=== PATIENT | female | born 1935 | race Caucasian/White ===

== ENCOUNTER → 2024-02-02 | Outpatient (CLI) | payer MEDICARE, BC ==
[2024-02-02 10:11] LABS: African American GFR (CKD) 42 (>60 ml/min/1.73 sqM); Blood Urea Nitrogen 36 mg/dL (7-17); Non-African American GFR(CKD) 36 (>60 ml/min/1.73 sqM)
--- NOTE | 2024-02-02 12:52 | FL ---
EXAMINATION TYPE: FL barium swallow DATE OF EXAM: 02/02/2024 CLINICAL INDICATION: 80 year-old female palpable lump left side of the neck. 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 FINDINGS: There is deep penetration noted with trace aspiration. No cough reflex is elicited. Hypopharyngeal an atomy otherwise maintained. There is tortuous course of the mid thoracic esophagus. No fixed narrowing. Moderate dysmotility is p resent with extensive tertiary peristaltic waves in stagnating contrast throughout the esophagus when the patient is prone/supine. Sandy assists with clearing. The mucosal is normal and no persistent filling defect is encountered. There is a small hiatal hernia present with mild gastroesophageal reflux. IMPRESSION: 1. Deep penetration with trace, silent aspiration noted. If symptomatic, consider speech pathology ev aluation. 2. Moderate esophageal dysmotility with stagnating contrast throughout the esophagus when the patient is prone/supine. 3. No stricture or suspicious mucosal lesion. 4. Small hiatal hernia with mild GERD.
--- NOTE | 2024-02-02 13:20 | CT ---
EXAMINATION TYPE: CT soft tissue neck wo con DATE OF EXAM: 02/02/2024 HISTORY: symptoms and signs involving circulatory/resp system, lump on left side marked w bb COMPARISON: None CT DLP: 434.8 mGycm. Automated Exposure Control for Dose Reduction was Utilized. TECHNIQUE multiple axial images were obtained from the skull base to the thoracic inlet without contr ast..: FINDINGS: There are no supraclavicular lymph nodes. There is no mass or abnormality beneath the BB marker in th e lower left neck. There is no thyroid mass or gross enlargement. The larynx including the cricoid, arytenoid and thyroid cartilages as well as the vocal cords are nor mal and symmetric. The tongue base, epiglottis, aryepiglottic folds, piriform sinuses and vallecula are normal and symme tric. The parotid and submandibular glands are normal and symmetric without focal mass or gross enlargement . There is no pharyngeal or parapharyngeal soft tissue mass or enhancement There is moderate eccentric calcification of the carotid bifurcations bilaterally. There are few scattered nonenlarged jugular lymph nodes and submental lymph nodes but there is no lym phadenopathy. There is no soft tissue swelling, inflammation or abscess. Mild chronic inflammatory changes in the right maxillary sinus. IMPRESSION: 1. No lymphadenopathy within the neck. 2. Moderate calcified plaque of the carotid bifurcations. 3. No abnormality in the region of clinical concern as directed by the patient
== END | disposition home or self-care (01) ==
LOC: RADCTMAIN 09:01
PROVIDERS: ATTEND Otolaryngology
DX: K44.9 Diaphragmatic hernia without obstruction or gangrene (principal); I65.23 Occlusion and stenosis of bilateral carotid arteries; K21.9 Gastro-esophageal reflux disease without esophagitis; Z13.9 Encounter for screening, unspecified; K22.4 Dyskinesia of esophagus; R09.89 Other specified symptoms and signs involving the circulatory and respiratory systems; Z87.19 Personal history of other diseases of the digestive system
CPT/HCPCS: 36415; 70490; 74220; 82565; 84520

== ENCOUNTER 2025-02-05 14:41 | Inpatient (IN) | payer BC, MEDICARE ==
[2025-02-05 14:55] LABS: Glucose,Whole Blood 102 mg/dL (70-110)
--- NOTE | 2025-02-05 15:34 | ED ---
General Adult HPI - General Chief complaint: Neuro Symptoms/Deficit Stated complaint: weakness Time Seen by Provider: 02/05/25 14:45 Source: patient, EMS, RN notes reviewed, old records reviewed Mode of arrival: EMS - History of Present Illness Initial comments: Is an 89-year-old female who presents to the emergency department after having been at [place] because she showed up after she had gone unresponsive at home and according to some of the documentation the patient had some facial droop and an NIH of 8 on other documentation however when they sent the patient she was an NIH is 0. Patient herself is now alert and oriented x 4 she has no complaints. Sodium according to the lab work that was sent was 128. - Related Data Allergies Allergy/AdvReac Type Severity Reaction Status Date / Time Sulfa (Sulfonamide Allergy Unknown Verified 02/05/25 14:51 Antibiotics) Review of Systems ROS Statement: Those systems with pertinent positive or pertinent negative responses have been documented in the HPI. ROS Other: All systems not noted in ROS Statement are negative. Past Medical History Past Medical History: Cancer, Myocardial Infarction (HI) Additional Past Medical History / Comment(s): pace maker, 3 stents placed. unknown cancer History of Any Multi-Drug Resistant Organisms: None Reported Past Surgical History: Appendectomy, Cholecystectomy, Hysterectomy, Joint Replacement, Pacemaker, Tonsillectomy Additional Past Surgical History / Comment(s): Knee replacement x2, hip replacement Past Psychological History: No Psychological Hx Reported Smoking Status: Never smoker Past Alcohol Use History: None Reported Past Drug Use History: None Reported General Exam - General Exam Comments Initial Comments: GENERAL: Patient is well-developed and well-nourished. Patient is nontoxic and well- hydrated and is in mild distress. ENT: Neck is soft and supple. No significant lymphadenopathy is noted. Oropharynx is clear. Moist mucous membranes. Neck has full range of motion without eliciting any pain. EYES: The sclera were anicteric and conjunctiva were pink and moist. Extraocular movements were intact and pupils were equal round and reactive to light. Eyelids were unremarkable. PULMONARY: Unlabored respirations. Good breath sounds bilaterally. No audible rales rhonchi or wheezing was noted. CARDIOVASCULAR: There is a regular rate and rhythm without any murmurs gallops or rubs. ABDOMEN: Soft and nontender with normal bowel sounds. SKIN: Skin is clear with no lesions or rashes and otherwise unremarkable. NEUROLOGIC: Patient is alert and oriented x3. Cranial nerves II through XII are grossly intact. Motor and sensory are also intact. Normal speech, volume and content. Symmetrical smile. Patient has an NIH is 0 MUSCULOSKELETAL: Normal extremities with adequate strength and full range of motion. LYMPHATICS: No significant lymphadenopathy is noted PSYCHIATRIC: Normal psychiatric evaluation. Course Vital Signs 02/05/25 14:44 Temperature 98.3 F Pulse Rate 75 Respiratory 16 Rate Blood Pressure 129/67 O2 Sat by Pulse 95 Oximetry Medical Decision Making - Medical Decision Making Was pt. sent in by a medical professional or institution (, TERRENCE, RENTAL COUNTER CLERK, urgent care, hospital, or skilled nursing...) When possible be specific @ -No Did you speak to anyone other than the patient for history (EMS, parent, family, police, friend...)? What history was obtained from this source @ -No Did you review nursing and triage notes (agree or disagree)? Why? @ -I reviewed and agree with nursing and triage notes Were old charts reviewed (outside hosp., previous admission, EMS record, old EKG, old radiological studies, urgent care reports/EKG's, skilled nursing records)? Report findings @ -I reviewed all the lab work CT results and HPI from [facility]. Differential Diagnosis? @ -Differential Altered Mental Status: Hypoglycemia, DKA, hypercapnia, ETOH, overdose, CO poisoning, trauma, myxedema coma, HTN encephalopathy, infection, encephalitis, psychosis, intercranial hemorrhage, hepatic encephalopathy, meningitis, CVA, this is not meant to be an all-inclusive list EKG interpreted by me (3pts min.). @ -As above X-rays interpreted by me (1pt min.). @ -None done CT interpreted by me (1pt min.). @ -None done U/S interpreted by me (1pt. min.). @ -None done What testing was considered but not performed or refused? (CT, X-rays, U/S, labs)? Why? @ -None What meds were considered but not given or refused? Why? @ -None Did you discuss the management of the patient with other professionals (professionals i.e. TERRENCE Woody, RENTAL COUNTER CLERK, lab, RT, psych nurse, vp digital marketing social media and crm, housekeeping and laundry team leader, teacher, gunnery/ordnance officer, vocational case manager)? Give summary @ -Spoke with Dr. Solis he agreed to admit the patient admit the patient wrote admitting orders Was smoking cessation discussed for >3mins.? @ -No Was critical care preformed (if so, how long)? @ -No Were there social determinants of health that impacted care today? How? (Homelessness, low income, unemployed, alcoholism, drug addiction, transportation, low edu. Level, literacy, decrease access to med. care, skilled nursing, rehab)? @ -No Was there de-escalation of care discussed even if they declined (Discuss DNR or withdrawal of care, Hospice)? DNR status @ -No What co-morbidities impacted this encounter? (DM, HTN, Smoking, COPD, CAD, Cancer, CVA, ARF, Chemo, Hep., AIDS, mental health diagnosis, sleep apnea, morbid obesity)? @ -None Was patient admitted / discharged? Hospital course, mention meds given and route, prescriptions, significant lab abnormalities, going to OR and other pertinent info. @ -Patient's lab work indicated that the patient had sodium 128 he will be admitted to Dr. Griffith and patient will be given some fluids. He can still be placed for neurology Undiagnosed new problem with uncertain prognosis? @ -No Drug Therapy requiring intensive monitoring for toxicity (Heparin, Nitro, Insulin, Cardizem)? @ -No Were any procedures done? @ -No Diagnosis/symptom? @ -Altered mental status Acute, or Chronic, or Acute on Chronic? @ -Acute Uncomplicated (without systemic symptoms) or Complicated (systemic symptoms)? @ -Complicated Side effects of treatment? @ -No Exacerbation, Progression, or Severe Exacerbation? @ -No Poses a threat to life or bodily function? How? (Chest pain, USA, HI, pneumonia, PE, COPD, DKA, ARF, appy, cholecystitis, CVA, Diverticulitis, Homicidal, Suicidal, threat to staff... and all critical care pts) @ -No Diagnosis/symptom? @ -Hyponatremia Acute, or Chronic, or Acute on Chronic? @ -Acute Uncomplicated (without systemic symptoms) or Complicated (systemic symptoms)? @ -Uncomplicated Side effects of treatment? @ -None Exacerbation, Progression, or Severe Exacerbation] @ -No Poses a threat to life or bodily function? @ -No - Lab Data Lab Results 02/05/25 Range/Units 14:52 POC Glucose (mg/dL) 102 (70-110) mg/dL POC Glu Net Washer ID Whitney Tim Disposition Clinical Impression: Altered mental status, Hyponatremia Disposition: ADMITTED IP TO THIS HOSP Referrals: Sandee Bardales MD [Primary Care Provider] - 1-2 days Time of Disposition: 15:36
[2025-02-05] MEDS: SODIUM CHLORIDE 0.9% 1,000 ML IV ONE (15:59)
[2025-02-05] MEDS ORDERED: ACETAMINOPHEN TAB 500 MG TAB PO PRN (15:59)
--- NOTE | 2025-02-05 16:40 | US ---
EXAMINATION TYPE: US carotid duplex BILAT DATE OF EXAM: 02/05/2025 COMPARISON: NONE CLINICAL INDICATION: Female, 89 years old with history of stroke; stroke Additional History: .... TECHNIQUE: Grayscale, color Doppler and spectral Doppler evaluation of the bilateral carotid systems and vertebral arteries. Indirect Doppler criteria was utilized. FINDINGS: EXAM MEASUREMENTS: RIGHT: Peak Systolic Velocity (PSV) cm/sec ----- Right CCA: 64.2 ----- Right ICA: 98.7 ----- Right ECA: 63.2 ICA/CCA ratio: 1.54 RIGHT: End Diastole cm/sec ----- Right CCA: 0.0 ----- Right ICA: 6.7 ----- Right ECA: 0.0 LEFT: Peak Systolic Velocity (PSV) cm/sec ----- Left CCA: 62.2 ----- Left ICA: 98.7 ----- Left ECA: 64.2 ICA/CCA ratio: 1.59 LEFT: End Diastole cm/sec ----- Left CCA: 1.5 ----- Left ICA: 9.7 ----- Left ECA: 0.0 VERTEBRALS (direction of flow): Right Vertebral: Antegrade Left Vertebral: Antegrade Rhythm: Normal BAND MANAGER NOTES: Moderate plaque right bifurcation. Mild plaque left bifurcation. No evidence of in creased velocities Color Doppler imaging shows patency with blood flow throughout the carotid artery. Spectral waveforms are within normal limits. IMPRESSION: Moderate atherosclerotic plaque within the right carotid bifurcation with mild amount within the left carotid bifurcation. Right: Less than 50% stenosis of the carotid bifurcation. Left: Less than 50% stenosis of the carotid bifurcation. Criteria for Assigning % of Stenosis / Diameter reduction (Estimation based on the indirect measurements of the internal carotid artery velocities (ICA PSV). 1. Normal (no stenosis)=ICA PSV < 180 cm/s: ratio < 2.0: ICA EDV<40 cm/s. 2. Less than 50% stenosis=ICA PSV < 180 cm/s: ratio < 2.0: ICA EDV<40 cm/s. 3. 50 to 69% stenosis=ICA PSV of 180 to 230 cm/s: ration 2.0 ? 4.0: ICA EDV 40-100 cm/s. PSV 125-180 cm/sec and ICA/CCA PSV Ratio ? 2.0 is also consistent with 50-69% stenosis 4. Greater than 70% stenosis to near occlusion= ICA PSV > 230 cm/s: ratio > 4.0: ICA EDV > 100 cm/s. 5. Near occlusion= ICA PSV velocities may be low or undetectable: variable ratio and ICA EDV. 6. Total occlusion=unable to detect flow. [facility], , 02/05/2025 4:38 PM
[2025-02-05] MEDS: ASPIRIN 81 MG PO SCH (17:31)
[2025-02-05] MEDS: PANTOPRAZOLE 40 MG TABLET PO SCH (17:32)
[2025-02-06] MEDS: HEPARIN SODIUM,PORCINE 5,000 UNIT/ML 1 ML VIAL SQ SCH ×2 (00:10→07:00)
--- NOTE | 2025-02-06 02:42 | HP ---
HISTORY AND PHYSICAL CHIEF COMPLAINT: Weakness and syncope. HISTORY OF PRESENT ILLNESS: This 89-year-old woman with past medical history of multiple medical history including myocardial infarction, apparently was sitting at the breakfast table with the . The patient passed out and was taken to the [facility] and the patient was noted to have some facial droop, NIH of 8. The patient was subsequently to 0 and the patient was oriented x4. Now, the patient is being sent to [facility] for further evaluation and treatment. There is no history of fever, rigors, chills at this time. PAST MEDICAL HISTORY: History of myocardial infarction. Rest of history and rest of the chart also reviewed. HOME MEDICATION: List is not available. ALLERGIES: Sulfa. FAMILY HISTORY: No history of heart disease or strokes in the family. SOCIAL HISTORY: No history of smoking or alcohol. REVIEW OF SYSTEMS: Fourteen-point review of systems negative except as mentioned earlier. PHYSICAL EXAMINATION: VITAL SIGNS: Pulse is 75, blood pressure 199/67, respirations 16. HEENT: Conjunctivae normal. NECK: No jugular venous distention. CARDIOVASCULAR: S1, S2 muffled. RESPIRATIONS: Breath sounds diminished at the bases. ABDOMEN: Soft, nontender. EXTREMITIES: Legs, n NERVOUS SYSTEM: Diffusely weak. LABORATORY DATA: Awaited. ASSESSMENT: 1. Syncope, rule out cardiac syncope. 2. Possible transient ischemic attack, rule out stroke. 3. History of myocardial infarction. 4. History of AICD. 5. History of coronary artery disease stent. 6. History of cancer. 7. History of cholecystectomy. 8. History of degenerative joint disease. RECOMMENDATION: This 89-year-old woman, who presented with multiple complex medical history, we will monitor the patient closely. I would recommend Cardiology, Neurology consultation. Full neurovascular workup including 2D echo, carotid ultrasound. I would also recommend orthostatic vitals also. See orders for details. Guarded prognosis. Further recommendations to follow. MMODL / IJN: [id number] / NAYELI
--- NOTE | 2025-02-06 07:56 | CA ---
Transthoracic Echo Report Name: Loni Reyes Age: 89 Gender: F : 1935 Exam Date: 02/05/2025 16:46 Exam Location: [place] [facility] Ht (in): 60 Wt (lb): 178 Ordering Physician: Gilberto Griffith MD Attending/Referring Phys: [place] Reverse Winder Azalia Washburn RDCS Procedure CPT: Indications: stroke Cardiac Hx: Pacemaker Technical Quality: Fair Contrast 1: Agitated Saline Total Dose (mL): 9 Contrast 2: Total Dose (mL): MEASUREMENTS (Male / Female) Normal Values 2D ECHO LV Diastolic Diameter PLAX 4.9 cm 4.2 - 5.9 / 3.9 - 5.3 cm LV Systolic Diameter PLAX 3.4 cm IVS Diastolic Thickness 0.9 cm 0.6 - 1.0 / 0.6 - 0.9 cm LVPW Diastolic Thickness 0.7 cm 0.6 - 1.0 / 0.6 - 0.9 cm LV Relative Wall Thickness 0.3 RV Internal Dim ED PLAX 3.1 cm LA Systolic Diameter LX 3.4 cm 3.0 - 4.0 / 2.7 - 3.8 cm M-MODE Aortic Root Diameter MM 3.6 cm AV Cusp Separation MM 2.5 cm DOPPLER AV Peak Velocity 112.6 cm/s AV Peak Gradient 5.1 mmHg AI Peak Velocity 384.2 cm/s AI Peak Gradient 59.0 mmHg AI Pressure Half Time 1837.7 ms MV Area PHT 3.1 cm??? Mitral E Point Velocity 32.4 cm/s Mitral A Point Velocity 97.7 cm/s Mitral E to A Ratio 0.3 MV Deceleration Time 246.3 ms TR Peak Velocity 223.4 cm/s TR Peak Gradient 20.0 mmHg Right Ventricular Systolic Press 23.7 mmHg FINDINGS Left Ventricle Left ventricular ejection fraction is estimated at 55-60 %. Left ventricular cavity size normal. Left ventricular wall thickness normal. Right Ventricle Normal right ventricular size. Right ventricular systolic pressure within normal limits. Right Atrium Normal right atrial size. No right atrial thrombus or mass seen. Negative agitated saline bubble study for right to left shunt. Left Atrium Normal left atrial size. No left atrial thrombus or mass present. Mitral Valve Mitral valve thickened. Mitral annular calcification. Mild mitral regurgitation. Aortic Valve Trileaflet aortic valve. Thickened aortic valve without stenosis. Mild aortic regurgitation. Tricuspid Valve Structurally normal tricuspid valve. Mild tricuspid regurgitation. Pulmonic Valve Structurally normal pulmonic valve. No pulmonic regurgitation. Pericardium No pericardial effusion. Aorta Normal size aortic root and proximal ascending aorta. CONCLUSIONS Normal LV size and systolic function. Suboptimal bubble study but no clear-cut shunt [id number]. Mild aortic insufficiency, mild mitral and tricuspid insufficiency no significant pulmonary hypertension. No pericardial effusion Previewed by: Dr. Jonathan Molina MD (Electronically Signed) Final Date: 06 Feb 2025 07:55
[2025-02-06 08:18] LABS: Basophils % (A) 1.6 %; Eosinophils # (A) 0.15 X 10*3/uL (0.04-0.35); Eosinophils % (A) 2.5 %; HCT 40.3 % (37.2-46.3); HGB 13.6 g/dL (12.0-15.0); Lymphocytes # (A) 1.35 X 10*3/uL (0.90-5.00); Lymphocytes % (A) 22.2 %; MCHC 33.7 g/dL (32.0-37.0); MCV 97.8 FL (80.0-97.0); Mean Platelet Volume 11.4 FL (9.5-12.2); Monocytes # (A) 0.81 X 10*3/uL (0.20-1.00); Monocytes % (A) 13.3 %; NRBC Per 100 WBC 0 X 10*3/uL (0.00-0.01); Neutrophils # (A) 3.62 X 10*3/uL (1.80-7.70); Neutrophils % (A) 59.7 %; Platelet Count 189 X 10*3/uL (140-440); RBC 4.12 X 10*6/uL (4.10-5.20); RDW 14.7 % (11.5-14.5); WBC 6.07 X 10*3/uL (4.50-10.00)
[2025-02-06 08:47] LABS: ALT 20 U/L (8-44); AST 25 U/L (13-35); Albumin 3.8 g/dL (3.8-4.9); Albumin/Globulin Ratio 1.41 Ratio (1.60-3.17); Alkaline Phosphatase 86 U/L (41-126); BUN/Creat Ratio 18.45 Ratio (12.00-20.00); Blood Urea Nitrogen 20.3 mg/dL (9.0-27.0); Calcium 8.9 mg/dL (8.7-10.3); Carbon Dioxide 22.4 mmol/L (21.6-31.8); Chloride 100 mmol/L (96-109); Globulin 2.7 g/dL (1.6-3.3); Glucose 93 mg/dL (70-110); Potassium 3.9 mmol/L (3.5-5.5); Sodium 132 mmol/L (135-145); Total Bilirubin 0.7 mg/dL (0.3-1.2); Total Protein 6.5 g/dL (6.2-8.2)
--- NOTE | 2025-02-06 11:17 | P.CRDCN ---
History of Present Illness History of present illness: HISTORY OF PRESENTING ILLNESS This is a pleasant 89-year-old female past medical history significant for coronary artery disease status post PCI exact details unavailable, pacemake r, hypertension, hyperlipidemia and hypothyroidism. She follows in the office with a body sander in [place]. We have been asked to see in consultation for syncope. She was transferred from [place] after having an episode of unresponsiveness at home with a facial droop. Upon arrival to [place] she was A&O x 4 with no complaints. She is seen and examined resting comfortably in bed in no acute distress. She denies dizziness, palpitations, chest pain or shortness of breath. She said she just felt weak yesterday when this occurred. Laboratory data reviewed, WBC 6, hemoglobin 13.6, platelets 189, sodium 132, potassium 3.9, creatinine 1.1. She is not on telemetry. No EKG was done. Current daily cardiac medications include Plavix 75 mg, Zetia 10 mg, Lasix 40 mg on Tuesday and Tuesday, Imdur 15 mg daily, Toprol 12.5 mg twice daily, rosuvastatin 10 mg every other day and Entresto 97/103 mg half a tablet daily. Orthostatic vital signs are unremarkable. Echocardiogram revealed normal LV size and systolic function, no clear-cut shunt [id number] with the bubble study, mild aortic insufficiency, mild mitral and tricuspid insufficiency with no significant pulmonary hypertension and no pericardial effusion. Bilateral carotid Doppler unremarkable. REVIEW OF SYSTEMS At the time of my exam: CONSTITUTIONAL: Denies fever or chills. CARDIOVASCULAR: Denies chest pain, shortness of breath, orthopnea, PND or palpitations. RESPIRATORY: Denies cough. GASTROINTESTINAL: Denies abdominal pain, diarrhea, constipation, nausea or vomiting. MUSCULOSKELETAL: Denies myalgias. NEUROLOGIC: Denies numbness, tingling, headache or weakness. ENDOCRINE: Denies fatigue, weight change, polydipsia or polyurina. GENITOURINARY: Denies burning, hematuria or urgency with micturation. HEMATOLOGIC: Denies history of anemia or bleeding. PHYSICAL EXAMINATION Blood pressure 120/75 heart rate 55 afebrile and maintaining oxygen saturation on room air. CONSTITUTIONAL: No apparent distress. HEENT: Head is normocephalic. Pupils are equal, round. Sclerae anicteric. Mucous membranes of the mouth are moist. No JVD. No carotid bruit. CHEST EXAMINATION: Lungs are clear to auscultation. No chest wall tenderness is noted on palpation or with deep breathing. HEART EXAMINATION: Regular rate and rhythm. S1, S2 heard. No murmurs, gallops or rub. ABDOMEN: Soft, nontender. EXTREMITIES: 2+ peripheral pulses, no lower extremity edema and no calf tenderness. NEUROLOGIC EXAMINATION: Patient is awake, alert and oriented x3. ASSESSMENT Possible syncope, likely related to dehydration History of coronary artery disease exact details unavailable History of permanent pacemaker exact details unavailable Hypertension Dyslipidemia PLAN Obtain EKG. Discontinue Entresto, being taken only daily is not correct. We will put her on losartan 25 mg at bedtime. Resume metoprolol succinate 12.5 mg daily. Advised patient to get up and walk around today and see how she feels. Increase water intake. Echocardiogram reviewed. Stable for discharge from a cardiac perspective advised her to follow-up with her primary body sander upon discharge. Thank you kindly for this consultation. Nurse Practitioner note has been reviewed, I agree with a documented findings and plan of care. Patient was seen and examined. Past Medical History Past Medical History: Coronary Artery Disease (CAD), Cancer, Chest Pain / Angina, Heart Failure, Eye Disorder, Hypertension, Myocardial Infarction (NH), Syncope, Thyroid Disorder Additional Past Medical History / Comment(s): pace maker, 3 stents placed. unknown cancer Lupus Lymphoma Raynauds CKD Last Myocardial Infarction Date:: 2014 History of Any Multi-Drug Resistant Organisms: None Reported Past Surgical History: Appendectomy, Cholecystectomy, Hysterectomy, Joint Replacement, Pacemaker, Tonsillectomy Additional Past Surgical History / Comment(s): Knee replacement x2, hip replacement Past Anesthesia/Blood Transfusion Reactions: No Reported Reaction Type of Cardiac Device: Permanent Pacemaker Device Placement Date:: 2014 Past Psychological History: No Psychological Hx Reported Smoking Status: Former smoker Past Alcohol Use History: None Reported Past Drug Use History: None Reported Medications and Allergies Home Medications Medication Instructions Recorded Confirmed Type Acetaminophen Tab [Tylenol Tab] 500 mg PO Q6H PRN 02/05/25 02/05/25 History Calcium-Vitamin D3(Unknown Dose 1 tab PO BID 02/05/25 02/05/25 History Clopidogrel [Plavix] 75 mg PO HS 02/05/25 02/05/25 History Co Q-10(Unknown Dose) 1 tab PO DAILY@1200 02/05/25 02/05/25 History Dicyclomine [Bentyl] 10 mg PO QID PRN 02/05/25 02/05/25 History Ezetimibe [Zetia] 10 mg PO DAILY@1200 02/05/25 02/05/25 History Famotidine [Pepcid] 40 mg PO DAILY 02/05/25 02/05/25 History Furosemide [Lasix] 40 mg PO MOWEFR 02/05/25 02/05/25 History Isosorbide Mononitrate ER [Imdur] 15 mg PO DAILY 02/05/25 02/05/25 History Isradipine 5 mg PO MOWEFR 02/05/25 02/05/25 History Levothyroxine Sodium [Synthroid] 100 mcg PO DAILY 02/05/25 02/05/25 History Methenamine Hippurate 1 gm PO BID-W/MEALS 02/05/25 02/05/25 History Metoprolol Succinate (ER) [Toprol 12.5 mg PO BID 02/05/25 02/05/25 History Xl] Nitroglycerin Sl Tabs [Nitrostat] 0.4 mg SL Q5M PRN 02/05/25 02/05/25 History Oxybutynin ER [Ditropan XL] 10 mg PO HS 02/05/25 02/05/25 History Potassium Chloride ER [K-Dur 20] 20 meq PO MOWEFR@119902/05/25 02/05/25 History Psyllium Husk (with Sugar) 1 tbsp PO DAILY PRN 02/05/25 02/05/25 History [Metamucil Powder] Rosuvastatin [Crestor] 10 mg PO Q48H 02/05/25 02/05/25 History Sacubitril/Valsartan [Entresto 97 0.5 tab PO W/SUPPER 02/05/25 02/05/25 History mg-103 mg Tablet] Allergies Allergy/AdvReac Type Severity Reaction Status Date / Time Sulfa (Sulfonamide Allergy Rash/Hives Verified 02/05/25 19:57 Antibiotics) doxercalciferol AdvReac lethargic Verified 02/05/25 19:57 [From Hectorol] Physical Exam Vitals: Vital Signs Temp Pulse Pulse Pulse Pulse Pulse Resp 02/06/25 09:01 57 L 74 77 02/06/25 07:00 97.5 F L 55 L 18 02/06/25 01:47 98 F 69 16 02/05/25 21:20 97.6 F 65 16 02/05/25 20:21 63 16 02/05/25 16:39 84 16 02/05/25 14:44 98.3 F 75 16 BP BP BP BP BP Pulse Ox 02/06/25 09:01 145/84 158/74 163/70 02/06/25 07:00 120/75 97 02/06/25 01:47 120/61 97 02/05/25 21:20 123/66 96 02/05/25 20:21 136/60 95 02/05/25 16:39 134/63 95 02/05/25 14:44 129/67 95 Intake and Output 02/05/25 02/06/25 02/06/25 22:59 06:59 14:59 Other: # Voids 3 Weight 80.739 kg Results 02/06/25 05:07 02/06/25 05:07 Cardiac Enzymes 02/06/25 Range/Units 05:07 AST 25 (13-35) U/L CBC 02/06/25 Range/Units 05:07 WBC 6.07 (4.50-10.00) X 10*3/uL RBC 4.12 (4.10-5.20) X 10*6/uL Hgb 13.6 (12.0-15.0) g/dL Hct 40.3 (37.2-46.3) % Plt Count 189 (140-440) X 10*3/uL Comprehensive Metabolic Panel 02/06/25 Range/Units 05:07 Sodium 132 L (135-145) mmol/L Potassium 3.9 (3.5-5.5) mmol/L Chloride 100 (96-109) mmol/L Carbon Dioxide 22.4 (21.6-31.8) mmol/L BUN 20.3 (9.0-27.0) mg/dL Creatinine 1.1 (0.6-1.5) mg/dL Glucose 93 (70-110) mg/dL Calcium 8.9 (8.7-10.3) mg/dL AST 25 (13-35) U/L ALT 20 (8-44) U/L Alkaline Phosphatase 86 (41-126) U/L Total Protein 6.5 (6.2-8.2) g/dL Albumin 3.8 (3.8-4.9) g/dL Current Medications Generic Name Dose Route Start Last Admin Trade Name Freq PRN Reason Stop Dose Admin Acetaminophen 500 mg 02/05/25 15:59 Acetaminophen Tab 500 Mg Tab PO Q6HR PRN Fever and/ or Pain Aspirin 81 mg 02/05/25 16:00 02/06/25 08:33 Aspirin 81 Mg PO 81 mg DAILY BRYAN Administration Heparin Sodium (Porcine) 5,000 unit 02/06/25 00:00 02/06/25 08:33 Heparin Sodium,Porcine 5,000 Unit/Ml 1 Ml Vial SQ 5,000 unit Q12HR BRYAN Administration Pantoprazole Sodium 40 mg 02/05/25 16:00 02/06/25 08:33 Pantoprazole 40 Mg Tablet PO 40 mg [id number] BRYAN Administration Intake and Output 02/05/25 02/06/25 02/06/25 22:59 06:59 14:59 Other: # Voids 3 Weight 80.739 kg 02/06/25 05:07 02/06/25 05:07
[2025-02-06] MEDS: METOPROLOL SUCCINATE (ER) 25 MG TAB.ER.24H PO SCH (11:26)
[2025-02-06] MEDS: CLOPIDOGREL 75 MG TAB PO SCH (11:26)
[2025-02-06] MEDS: LOSARTAN 25 MG TAB PO SCH (20:36)
--- NOTE | 2025-02-07 09:12 | P.CNNES ---
History of Present Illness Consult date: 02/06/25 Requesting physician: Bobby Fowler Reason for Consult: Altered mental status History of Present Illness: Patient is a 89-year-old right-handed female came to the hospital by ambulance yesterday at 2:41 PM for possible syncopal episode. Patient states that she was sitting at the kitchen table having her coffee when suddenly her head went back, and she fell forward across the table and she was "completely out". She could not remember what was happening, but could not move. EMS was called. Patient states that a few months ago she had a similar spell as well, but does not remember what she was doing at that time, however she states that she was taken to [facility] and then was transferred to the [facility]. They did some "different tests" and was released. She believes that she may have stayed in the hospital for 3 days. EMS flowsheet not available in the chart. Vital signs on arrival blood pressure 129/67, pulse rate 75 temperature 98.3. Patient had orthostatics checked, in which her supine blood pressure was 158/74, sitting was 163/70 and standing 145/84. Her pulse rate was 77, 57 and 74 respectively. Repeat orthostatics were negative with supine blood pressure 145/84, sitting 158/87 and standing 149/66. Pulse 56, 66 and 73 respectively. Blood test showed normal CBC with some macrocytosis. Sodium 132 potassium is normal renal function, hepatic panel is normal. EKG showed electronic atrial pacemaker. Home medications include Zetia 10 mg, Crestor 10 mg, Plavix 75 mg, and other medications. Patient denies any history of tobacco use, alcohol. Denies diabetes, she does have hypertension. Patient lives with her , does not use any assistive device at home. Review of Systems All pertinent positive and negative review of systems mentioned in the HPI, otherwise unremarkable. Past Medical History Past Medical History: Coronary Artery Disease (CAD), Cancer, Chest Pain / Angina, Heart Failure, Eye Disorder, Hypertension, Myocardial Infarction (NH), Syncope, Thyroid Disorder Additional Past Medical History / Comment(s): pace maker, 3 stents placed. unknown cancer Lupus Lymphoma Raynauds CKD Last Myocardial Infarction Date:: 2014 History of Any Multi-Drug Resistant Organisms: None Reported Past Surgical History: Appendectomy, Cholecystectomy, Hysterectomy, Joint Replacement, Pacemaker, Tonsillectomy Additional Past Surgical History / Comment(s): Knee replacement x2, hip replacement Past Anesthesia/Blood Transfusion Reactions: No Reported Reaction Type of Cardiac Device: Permanent Pacemaker Device Placement Date:: 2014 Past Psychological History: No Psychological Hx Reported Smoking Status: Former smoker Past Alcohol Use History: None Reported Past Drug Use History: None Reported Medications and Allergies Home Medications Medication Instructions Recorded Confirmed Type Acetaminophen Tab [Tylenol Tab] 500 mg PO Q6H PRN 02/05/25 02/05/25 History Calcium-Vitamin D3(Unknown Dose 1 tab PO BID 02/05/25 02/05/25 History Clopidogrel [Plavix] 75 mg PO HS 02/05/25 02/05/25 History Co Q-10(Unknown Dose) 1 tab PO DAILY@119902/05/25 02/05/25 History Dicyclomine [Bentyl] 10 mg PO QID PRN 02/05/25 02/05/25 History Ezetimibe [Zetia] 10 mg PO DAILY@1200 02/05/25 02/05/25 History Famotidine [Pepcid] 40 mg PO DAILY 02/05/25 02/05/25 History Furosemide [Lasix] 40 mg PO MOWEFR 02/05/25 02/05/25 History Isosorbide Mononitrate ER [Imdur] 15 mg PO DAILY 02/05/25 02/05/25 History Isradipine 5 mg PO MOWEFR 02/05/25 02/05/25 History Levothyroxine Sodium [Synthroid] 100 mcg PO DAILY 02/05/25 02/05/25 History Methenamine Hippurate 1 gm PO BID-W/MEALS 02/05/25 02/05/25 History Metoprolol Succinate (ER) [Toprol 12.5 mg PO BID 02/05/25 02/05/25 History Xl] Nitroglycerin Sl Tabs [Nitrostat] 0.4 mg SL Q5M PRN 02/05/25 02/05/25 History Oxybutynin ER [Ditropan XL] 10 mg PO HS 02/05/25 02/05/25 History Potassium Chloride ER [K-Dur 20] 20 meq PO MOWEFR@1200 02/05/25 02/05/25 History Psyllium Husk (with Sugar) 1 tbsp PO DAILY PRN 02/05/25 02/05/25 History [Metamucil Powder] Rosuvastatin [Crestor] 10 mg PO Q48H 02/05/25 02/05/25 History Sacubitril/Valsartan [Entresto 97 0.5 tab PO W/SUPPER 02/05/25 02/05/25 History mg-103 mg Tablet] Allergies Allergy/AdvReac Type Severity Reaction Status Date / Time Sulfa (Sulfonamide Allergy Rash/Hives Verified 02/05/25 19:57 Antibiotics) doxercalciferol AdvReac lethargic Verified 02/05/25 19:57 [From Hectorol] Physical Examination - Vital Signs Vital Signs: Vital Signs Temp Pulse Pulse Pulse Pulse Pulse Resp 02/06/25 13:06 66 73 56 L 02/06/25 12:44 97.5 F L 66 18 02/06/25 09:01 57 L 74 77 02/06/25 07:00 97.5 F L 55 L 18 02/06/25 01:47 98 F 69 16 02/05/25 21:20 97.6 F 65 16 02/05/25 20:21 63 16 02/05/25 16:39 84 16 BP BP BP BP BP Pulse Ox 02/06/25 13:06 149/66 145/84 158/87 02/06/25 12:44 145/84 95 02/06/25 09:01 145/84 158/74 163/70 02/06/25 07:00 120/75 97 02/06/25 01:47 120/61 97 02/05/25 21:20 123/66 96 02/05/25 20:21 136/60 95 02/05/25 16:39 134/63 95 Intake and Output 02/06/25 02/06/25 02/06/25 06:59 14:59 22:59 Other: # Voids 3 Patient is an elderly female, very pleasant, in no acute distress. Patient is alert awake oriented to time place and person. Patient knows it is January 2025 and that she is in [facility]. On asking more details, she believes that she is in [facility]. She knows name of the current president Mr. Barton, her date of 1935, but believes he is 92 years old. Patient able to name objects and repeats very well. Speech and language functions are normal. Patient has no aphasia or dysarthria. Attention, concentration and fund of knowledge is adequate. Positive visual spatial aprax ia, but negative palmomental reflex. On cranial nerve examination, pupils are equal, round and reacting to light, visual samano are full on confrontation, with no neglect on double simultaneous stimulation. Extraocular muscles are intact with no nystagmus. Face is symmetric, tongue protrudes to the midline. Palatal elevation and sensation normal, hearing and shoulder shrug normal, facial sensation normal. On muscle strength testing, there is no pronator drift and the strength is normal in arms and legs distally and proximally, except right shoulder which is weak from previous surgery. Her ankle dorsiflexion are 5, but hip flexion 4+ bilaterally. Deep tendon reflexes are symmetric 1+ in the upper extremities, trace in the lower limbs, plantars are withdrawal. Sensory to touch is equal with no neglect on double simultaneous stimulation. Cerebellar function showed no ataxia for [id number] testing. No dysdiadochokinesia. No ataxia for ohnl-kr-[id number] testing on either side. Tone and bulk of muscles normal. Gait deferred.. On general examination, there is no carotid bruit or murmur, S1-S2 audible. Chest is clear on consultation. Abdomen is soft nontender. No organomegaly, bowel sounds present. Peripheral pulses are present. No peripheral edema. Results - Laboratory Findings CBC and BMP: 02/06/25 05:07 02/06/25 05:07 Abnormal Lab Findings: Abnormal Labs 02/06/25 02/06/25 05:07 05:07 MCV 97.8 H MCH 33.0 H RDW 14.7 H Sodium 132 L Est GFR (CKD-EPI) 48 L Albumin/Globulin Ratio 1.41 L Assessment and Plan Assessment: * Syncopal spell, unclear cause. * Hypertension * Heart failure * Coronary artery disease * Hypothyroidism * Hyperlipidemia * Pacemaker Plan: * Carotid Doppler revealed less than 50% stenosis of the carotid bifurcations bilaterally. Moderate atherosclerotic plaque within the right carotid bifurcation with mild amount within the left carotid bifurcation. Antegrade flow in both vertebral arteries. * Echocardiogram revealed normal LV size and systolic function. EF is 55 to 60%. Left ventricular wall thickness normal. Normal left atrial size. Mitral valve thickened. Suboptimal bubble study but no clear-cut shunt right to left. Mild AI. * Orthostatics are negative. * Cardiology have seen the patient and cleared for discharge. * EEG rule out epileptiform activity. * B12, folate, TSH. * Patient may have underlying cognitive impairment. I would recommend patient follow-up with neurologist outpatient when all medical conditions have been stabilized. As cognitive function testing to check for dementia should be avoided in hospital setting. * Neurology will follow. Thank you for the consult.
--- NOTE | 2025-02-07 10:36 | PN ---
PROGRESS NOTE DATE OF SERVICE: 02/06/2025 SUBJECTIVE: This is an 89-year-old woman, who was admitted with syncope, is also being evaluated for TIA. The patient does not have an orthostatic hypotension. No chest pain. No palpitation. OBJECTIVE: VITAL SIGNS: Pulse 73. Blood pressure noted. Temperature 97.5. CHEST: Clear to auscultation. CARDIOVASCULAR SYSTEM: S1 and S2. ABDOMEN: Soft. NERVOUS SYSTEM: No stroke. LABORATORY DATA: Reviewed. 2D echo showed normal ejection fraction, carotid Doppler less than 50% stenosis. ASSESSMENT: 1. Syncope, rule out cardiac syncope. 2. Possible transient ischemic attack. 3. History of myocardial infarction. 4. History of AICD. 5. History of coronary artery disease stent. 6. History of cholecystectomy. RECOMMENDATION: Continue current management and treatment. Closely follow with Cardiology, Neurology. Guarded prognosis. Further recommendations to follow. MMODL / IJN: [id number] /
[2025-02-07 12:04] VITALS: BP 147/80; PULSE 77; RESP 16; TEMP 97.5
--- NOTE | 2025-02-07 15:43 | EEG ---
DATE OF SERVICE: 02/07/2025 ELECTROENCEPHALOGRAM REPORT PREAMBLE: This is an 89-year-old female with syncopal spell. EEG FINDINGS: This is a 21-channel digital EEG recorded with video component, utilizing 10/20 international system with referential and bipolar montages. The background consists of well developed, well regulated moderate voltage activity in mixed frequencies of 7 hertz theta, with some 8 hertz alpha activity seen in bihemispheric region. Background is posterior dominant and reactive to eye opening and closing. Photic driving response was not seen. Different stages of sleep were not seen. Hyperventilation was not done. No focal or generalized epileptiform activity was seen. IMPRESSION: This is an abnormal EEG due to background slowing suggestive of mild encephalopathy. No focal, lateralized or epileptiform activity was seen. MMODL / IJN: [id number] / MTDD
--- NOTE | 2025-02-08 02:52 | DS ---
DISCHARGE SUMMARY FINAL DIAGNOSIS: 1. Syncope of undetermined etiology, possible secondary to dehydration or TIA. 2. History of myocardial infarction. 3. History of AICD. 4. History of coronary artery disease, stent. 5. History of cholecystectomy. DISCHARGE DISPOSITION: The patient is being discharged in stable condition and guarded prognosis. HISTORY OF PRESENT ILLNESS: This is an 89-year-old woman, who was admitted with syncope, and the patient was evaluated for above-mentioned medical issues, but the results are negative so far, improving. The patient is keen on going home. I recommend the patient to follow up with primary physician in the outpatient setting. Also recommended to follow with Neurology and Cardiology. Aspirin 81 mg daily and Cozaar 25 mg at bedtime has been added. Follow up labs with Dr. Bardales. CHRISTINA / RODO: [id number] /
== END 2025-02-07 16:04 | disposition home or self-care (01) | DRG 69 ==
LOC: EC 14:41 → 6NMEDSUR 16:16 → 5NMEDONC 19:49 → 6NMEDSUR 20:47 → 5NMEDONC 20:48
PROVIDERS: ADMIT Hospitalist; ATTEND Hospitalist
DX: G45.9 Transient cerebral ischemic attack, unspecified (principal); E87.1 Hypo-osmolality and hyponatremia; E86.0 Dehydration; I11.0 Hypertensive heart disease with heart failure; E03.9 Hypothyroidism, unspecified; I50.9 Heart failure, unspecified; R55 Syncope and collapse; M19.90 Unspecified osteoarthritis, unspecified site; I25.10 Atherosclerotic heart disease of native coronary artery without angina pectoris; D75.89 Other specified diseases of blood and blood-forming organs; E78.5 Hyperlipidemia, unspecified; Z95.810 Presence of automatic (implantable) cardiac defibrillator; Z87.891 Personal history of nicotine dependence; Z85.9 Personal history of malignant neoplasm, unspecified; Z79.02 Long term (current) use of antithrombotics/antiplatelets; Z79.890 Hormone replacement therapy; I25.2 Old myocardial infarction; Z95.5 Presence of coronary angioplasty implant and graft; Z79.899 Other long term (current) drug therapy; Z96.649 Presence of unspecified artificial hip joint; Z96.659 Presence of unspecified artificial knee joint
CPT/HCPCS: 36415; 80053; 82607; 82746; 84443; 85025; 93306; 93880; 95816; 96360; 96361; 99285